=== PATIENT | male | born 1970 | race Caucasian/White ===

== ENCOUNTER 2016-12-04 05:53 | Day surgery (SDC) | payer OTHER ==
[~2016-12-04 05:53] MED LIST: ESCI10TA PO; FAMO20 PO
[2016-12-04] MEDS ORDERED: SODIUM CHLORIDE 0.9% 1,000 ML IV ONE ×2 (06:00→06:07)
[2016-12-04] MEDS ORDERED: MIDAZOLAM HCL 2 MG/2 ML VIAL ONE (07:39)
[2016-12-04] MEDS ORDERED: FentaNYL CITRATE-PF 100 MCG/2 ML VIAL ONE (07:40)
[2016-12-04] MEDS ORDERED: MethylPREDNISolone SOD SUCC 125 MG/2 ML VIAL IVP ONE (08:15)
[2016-12-04] MEDS ORDERED: MethylPREDNISolone SOD SUCC 125 MG/2 ML VIAL ONE (08:46)
[2016-12-04] MEDS ORDERED: LIDOCAINE HCL 4% 50 ML SOLUTION TP ONE (13:55)
[2016-12-04] MEDS ORDERED: EPINEPHrine 1:1,000 [1 MG/ML] AMP IM ONE (13:55)
[2016-12-04] MEDS ORDERED: BENZOCAINE 20% 50 MCG/SPRAY 57 GM TP ONE (13:55)
[2016-12-04] MEDS ORDERED: ALBUTEROL SULFATE 2.5 MG/0.5 ML NEB SOLUTION NEB ONE (13:55)
[2016-12-04] MEDS ORDERED: LIDOCAINE HCL 2% 30 ML JELLY TP ONE (13:55)
[2016-12-04] MEDS ORDERED: OXYGEN THERAPY IH SCH (20:00)
== END 2016-12-04 10:25 | disposition home or self-care (01) ==
LOC: SURGERY 05:53
PROVIDERS: ATTEND Internal Medicine Critical Care Medicine
DX: J38.4 Edema of larynx (principal); B37.0 Candidal stomatitis; F41.9 Anxiety disorder, unspecified
CPT/HCPCS: 31623; 31624; 71010; 87015 ×2; 87070; 87101; 87147; 87205; 87220; 88108; 88312; J0171; J2250; J2930; J3010; J7030